=== PATIENT | female | born 1960 | race Asian ===

== ENCOUNTER 2016-11-21 15:00 | Outpatient (CLI) | payer OTHER ==
[~2016-11-21 15:00] MED LIST: ALLERCLEAR10 MG PO; ARBINOXA4 MG OR; ASTEPRO0.15 %; BENZ1TAB43 PO; BUDE1AER5 INH; CLONIDINE0.1 MG PO; DEMADEX10 MG OR; DILTCAP11 PO; DIOVAN HCT320 MG/25 PO; DIVALPROEX500 M1 OR; FE TABS325 MG OR; LEVO0.1519 PO; LIPITOR20 MG PO; MELO-13 OR; MONT10TA PO; NEXIUM40 M1 OR; OPTIVAR0.05 % OP; RISP1TAB PO; ZANTAC300 MG OR
[2016-11-21 15:16] LABS: PLATELET COUNT 239 K/uL (152-353)
[2016-11-21 15:41] LABS: SODIUM 134 mmol/L (136-145)
== END 2016-11-21 19:17 | disposition home or self-care (01) ==
LOC: LAB 15:00
PROVIDERS: Nurse Practitioner Family
DX: Z79.899 Other long term (current) drug therapy (principal); E78.5 Hyperlipidemia, unspecified; I10 Essential (primary) hypertension; J45.909 Unspecified asthma, uncomplicated; G47.30 Sleep apnea, unspecified; K21.9 Gastro-esophageal reflux disease without esophagitis; E03.9 Hypothyroidism, unspecified; D50.9 Iron deficiency anemia, unspecified; E55.9 Vitamin D deficiency, unspecified
CPT/HCPCS: 80053; 80061; 80164; 82306; 82607; 83036; 84436; 84443; 85027

== ENCOUNTER 2017-03-13 14:25 | Outpatient (CLI) | payer OTHER ==
[2017-03-13 14:59] LABS: PLATELET COUNT 271 K/uL (152-353)
[2017-03-13 15:21] LABS: SODIUM 134 mmol/L (136-145)
== END 2017-03-13 15:25 | disposition home or self-care (01) ==
LOC: LAB 14:25
PROVIDERS: Nurse Practitioner Family
DX: Z00.00 Encounter for general adult medical examination without abnormal findings (principal); Z79.899 Other long term (current) drug therapy; K21.9 Gastro-esophageal reflux disease without esophagitis; I10 Essential (primary) hypertension; J45.909 Unspecified asthma, uncomplicated; G47.39 Other sleep apnea; E03.8 Other specified hypothyroidism; E78.4 Other hyperlipidemia; D50.8 Other iron deficiency anemias; E55.9 Vitamin D deficiency, unspecified
CPT/HCPCS: 80053; 80061; 82306; 83036; 84436; 84443; 85027

== ENCOUNTER 2017-06-11 14:01 | Outpatient (CLI) | payer OTHER ==
[2017-06-11 15:34] LABS: POTASSIUM 4.1 mmol/L (3.6-5.2); SODIUM 135 mmol/L (136-145)
== END 2017-06-11 19:05 | disposition home or self-care (01) ==
LOC: LAB 14:01
PROVIDERS: Nurse Practitioner Family
DX: K21.9 Gastro-esophageal reflux disease without esophagitis (principal); F33.1 Major depressive disorder, recurrent, moderate; Z00.00 Encounter for general adult medical examination without abnormal findings; Z79.899 Other long term (current) drug therapy; I10 Essential (primary) hypertension; J45.909 Unspecified asthma, uncomplicated; G47.30 Sleep apnea, unspecified; E03.9 Hypothyroidism, unspecified; E78.5 Hyperlipidemia, unspecified; D50.9 Iron deficiency anemia, unspecified
CPT/HCPCS: 80053; 80061; 80164; 83036; 84436; 84443

== ENCOUNTER 2017-09-10 14:16 | Outpatient (CLI) | payer OTHER ==
[2017-09-10 14:29] LABS: PLATELET COUNT 269 K/uL (152-353)
[2017-09-10 16:00] LABS: POTASSIUM 4.3 mmol/L (3.6-5.2)
[2017-09-10 16:01] LABS: LDL CHOLESTEROL 89.8 mg/dL (0-99*)
== END 2017-09-10 19:51 | disposition home or self-care (01) ==
LOC: LAB 14:16
PROVIDERS: Nurse Practitioner Family
DX: I10 Essential (primary) hypertension (principal); J45.998 Other asthma; E03.8 Other specified hypothyroidism; E78.4 Other hyperlipidemia; D50.8 Other iron deficiency anemias; Z79.899 Other long term (current) drug therapy; Z51.81 Encounter for therapeutic drug level monitoring
CPT/HCPCS: 80053; 80061; 83036; 84436; 84443; 85027

== ENCOUNTER 2018-02-05 14:42 | Outpatient (CLI) | payer OTHER ==
[2018-02-05 16:01] LABS: PLATELET COUNT 236 K/uL (152-353)
[2018-02-05 16:28] LABS: POTASSIUM 3.8 mmol/L (3.6-5.2)
== END 2018-02-05 22:47 | disposition home or self-care (01) ==
LOC: LAB 14:42
PROVIDERS: Nurse Practitioner Family
DX: I10 Essential (primary) hypertension (principal); E03.8 Other specified hypothyroidism; K21.9 Gastro-esophageal reflux disease without esophagitis; E78.4 Other hyperlipidemia; D50.8 Other iron deficiency anemias; Z79.899 Other long term (current) drug therapy; Z51.81 Encounter for therapeutic drug level monitoring
CPT/HCPCS: 80053; 80061; 83036; 84436; 84443; 85027

== ENCOUNTER 2018-06-07 16:35 | Emergency (ER) | payer OTHER ==
[~2018-06-07] VITALS: Ht 160 cm; Wt 124.7 kg
[~2018-06-07 16:35] MED LIST changes: +AZEL0.05 OPTH; +CLONIDINE HYDR0.1 M1 PO; -CLONIDINE0.1 MG PO; -DEMADEX10 MG OR; +DEMADEX10 MG PO; -DIVALPROEX500 M1 OR; +DIVALPROEX500 M1 PO; -FE TABS325 MG OR; +FE TABS325 MG PO; -MELO-13 OR; +MOBIC7.5 M1 PO; -OPTIVAR0.05 % OP; -ZANTAC300 MG OR; +ZANTAC300 MG PO
[2018-06-07] MEDS ORDERED: LIPITOR40 MG PO (16:54)
[2018-06-07] MEDS ORDERED: RISPERDAL3 MG PO (16:55)
[2018-06-07] MEDS ORDERED: ALLERGY10 MG PO (16:55)
[2018-06-07] MEDS ORDERED: LEVO-T125 MCG PO (16:56)
[2018-06-07] MEDS ORDERED: NEXIUM40 M1 PO (16:56)
[2018-06-07] MEDS ORDERED: FLUTICASON50 MCG/ACT NAS (16:57)
[2018-06-07] MEDS ORDERED: BUDE1AER3 INH (16:58)
[2018-06-07] MEDS ORDERED: METF500T PO (17:14)
[2018-06-07 17:32] LABS: PLATELET COUNT 216 K/uL (152-353)
[2018-06-07 17:42] LABS: POTASSIUM 3.2 mmol/L (3.6-5.2)
[2018-06-07 18:30] VITALS: BP 169/88
== END 2018-06-07 18:30 | disposition home or self-care (01) ==
LOC: ED 16:35
PROVIDERS: Family Medicine
DX: J06.9 Acute upper respiratory infection, unspecified (principal)
CPT/HCPCS: 36415; 80053; 85027; 87502; 99283

== ENCOUNTER 2019-04-02 14:50 | Outpatient (CLI) | payer OTHER ==
[~2019-04-02 14:50] MED LIST changes: +ALLERGY10 MG PO; +BUDE1AER3 INH; +FLUTICASON50 MCG/ACT NAS; +LEVO-T125 MCG PO; +LIPITOR40 MG PO; +METF500T PO; +NEXIUM40 M1 PO; +RISPERDAL3 MG PO
[2019-04-02 15:10] LABS: PLATELET COUNT 261 K/uL (152-353)
[2019-04-02 15:45] LABS: POTASSIUM 3.8 mmol/L (3.6-5.2)
== END 2019-04-02 21:43 | disposition home or self-care (01) ==
LOC: LAB 14:50
PROVIDERS: Nurse Practitioner Family
DX: Z00.00 Encounter for general adult medical examination without abnormal findings (principal); K21.9 Gastro-esophageal reflux disease without esophagitis; I10 Essential (primary) hypertension; E03.8 Other specified hypothyroidism; E78.49 Other hyperlipidemia; D50.8 Other iron deficiency anemias; Z79.899 Other long term (current) drug therapy
CPT/HCPCS: 36415; 80053; 80061; 83036; 84439; 84443; 85027

== ENCOUNTER 2019-05-28 09:56 | Outpatient (CLI) | payer OTHER | END 2019-05-28 20:42 | disposition home or self-care (01) | LOC: US 09:56 | DX: R10.9 Unspecified abdominal pain (principal) ==

== ENCOUNTER 2019-07-01 16:09 | Outpatient (CLI) | payer OTHER ==
[2019-07-01 16:50] LABS: PLATELET COUNT 220 K/uL (152-353)
[2019-07-01 17:05] LABS: POTASSIUM 4.1 mmol/L (3.6-5.2)
== END 2019-07-01 21:45 | disposition home or self-care (01) ==
LOC: LAB 16:09
PROVIDERS: Nurse Practitioner Family
DX: Z00.00 Encounter for general adult medical examination without abnormal findings (principal); K21.9 Gastro-esophageal reflux disease without esophagitis; I10 Essential (primary) hypertension; E03.8 Other specified hypothyroidism; E78.49 Other hyperlipidemia; Z79.899 Other long term (current) drug therapy; D50.8 Other iron deficiency anemias; E55.9 Vitamin D deficiency, unspecified; E53.8 Deficiency of other specified B group vitamins
CPT/HCPCS: 80053; 80061; 82306; 82607; 82728; 83036; 84439; 85027

== ENCOUNTER 2019-07-06 11:11 | Outpatient (CLI) | payer OTHER | END 2019-07-06 23:08 | disposition home or self-care (01) | LOC: LAB 11:11 | DX: E03.8 Other specified hypothyroidism (principal) | CPT/HCPCS: 84443 ==

== ENCOUNTER 2020-02-03 11:07 | Outpatient (CLI) | payer OTHER | END 2020-02-03 20:25 | disposition home or self-care (01) | LOC: CT 11:07 | DX: R22.1 Localized swelling, mass and lump, neck (principal); R21 Rash and other nonspecific skin eruption ==

== ENCOUNTER 2020-08-19 10:48 | Outpatient (CLI) | payer OTHER | END 2020-08-19 23:02 | disposition home or self-care (01) | LOC: MAMMO 10:48 | PROVIDERS: ATTEND Nurse Practitioner Family | DX: Z12.31 Encounter for screening mammogram for malignant neoplasm of breast (principal) ==

== ENCOUNTER 2020-11-19 20:15 | Emergency (ER) | payer OTHER ==
[~2020-11-19] VITALS: Ht 160 cm; Wt 124.7 kg
[2020-11-19 20:25] VITALS: TEMP 100
[2020-11-19 22:02] VITALS: BP 211/99
== END 2020-11-19 22:02 | disposition home or self-care (01) ==
LOC: ED 20:15
DX: I10 Essential (primary) hypertension (principal); M54.2 Cervicalgia
CPT/HCPCS: 99281

== ENCOUNTER 2021-04-04 13:00 | Outpatient (CLI) | payer OTHER | END 2021-04-04 19:05 | disposition home or self-care (01) | LOC: US 13:00 → MAMMO 13:00 | PROVIDERS: ATTEND Nurse Practitioner Family | DX: R92.8 Other abnormal and inconclusive findings on diagnostic imaging of breast (principal) ==

== ENCOUNTER 2021-09-06 12:32 | Outpatient (CLI) | payer OTHER | END 2021-09-06 19:09 | disposition home or self-care (01) | LOC: MAMMO 12:32 | PROVIDERS: ATTEND Nurse Practitioner Family | DX: Z12.31 Encounter for screening mammogram for malignant neoplasm of breast (principal) ==

== ENCOUNTER 2021-11-23 11:57 | Outpatient (CLI) | payer OTHER | END 2021-11-23 19:33 | disposition home or self-care (01) | LOC: RAD 11:57 | PROVIDERS: ATTEND Nurse Practitioner Family | DX: M25.512 Pain in left shoulder (principal); M54.2 Cervicalgia ==

== ENCOUNTER 2022-08-15 13:48 | Emergency (ER) | payer OTHER ==
[~2022-08-15] VITALS: Ht 160 cm; Wt 114.8 kg
[2022-08-15 13:53] VITALS: TEMP 98.9
[2022-08-15 15:51] VITALS: BP 173/90
== END 2022-08-15 15:53 | disposition home or self-care (01) ==
LOC: ED 13:48
DX: S16.1XXA Strain of muscle, fascia and tendon at neck level, initial encounter (principal); S46.812A Strain of other muscles, fascia and tendons at shoulder and upper arm level, left arm, initial encounter; V43.53XA Car driver injured in collision with pick-up truck in traffic accident, initial encounter; Y92.481 Parking lot as the place of occurrence of the external cause
CPT/HCPCS: 93005; 99284

== ENCOUNTER 2022-09-22 18:37 | Emergency (ER) | payer OTHER ==
[~2022-09-22] VITALS: Ht 160 cm; Wt 113.4 kg
[2022-09-22 18:37] VITALS: TEMP 97.4
[~2022-09-22 18:37] MED LIST changes: -AZEL0.05 OPTH; +AZELASTINE0.05 % OPTH; -DEMADEX10 MG PO; +ESOMEPRAZOLE MA40 M1 PO; -NEXIUM40 M1 PO; +TORSEMIDE10 MG PO
[2022-09-22 22:59] LABS: PLATELET COUNT 325 K/uL (152-353)
[2022-09-22 23:02] LABS: POTASSIUM 2.9 mmol/L (3.6-5.2)
[2022-09-22 23:10] VITALS: BP 123/68
[2022-09-23] MEDS ORDERED: BENZ1TAB43 PO (08:18)
[2022-09-23] MEDS ORDERED: RISP2TAB2 PO (08:24)
[2022-09-23] MEDS ORDERED: EUTHYROX112 MCG PO (08:24)
[2022-09-23] MEDS ORDERED: METO50TA63 PO (08:25)
[2022-09-23] MEDS ORDERED: DILT-XR180 MG PO (08:26)
== END 2022-09-22 23:10 | disposition still patient (30) ==
LOC: ED 18:37
PROVIDERS: Family Medicine
DX: F20.89 Other schizophrenia (principal); E87.1 Hypo-osmolality and hyponatremia; E87.6 Hypokalemia; Z11.52 Encounter for screening for COVID-19
CPT/HCPCS: 80053; 80143; 80179; 80320; 85027; 87635; 93005; 96372; 99285; J1200; J3486; U0003

== ENCOUNTER 2023-02-13 09:37 | Outpatient (CLI) | payer OTHER ==
[~2023-02-13 09:37] MED LIST changes: +ACET-206 PO; +DILT-XR180 MG PO; +DULCOLAX 10MG SUPP PR; +Depakote Sprinkles 1 PO; +EUTHYROX112 MCG PO; +LEVO0.117 PO; +MAGN400T4 PO; +MAGNSUS68 PO; +MEGESTROL400 MG/10 PO; +METO50TA63 PO; +OLANZAPINE10 MG PO; +OLOP0.1S OPTH; +POTA20TA4 PO; +RISP2TAB2 PO; +SERT50TA PO
== END 2023-02-13 21:02 | disposition home or self-care (01) ==
LOC: RAD 09:37
PROVIDERS: ATTEND Nurse Practitioner Family
DX: M25.512 Pain in left shoulder (principal)